=== PATIENT | male | born 1980 | race Caucasian/White ===

== ENCOUNTER 2019-08-21 10:53 | Inpatient (IN) | payer OTHER ==
[~2019-08-21] VITALS: Ht 167.6 cm; Wt 68.9 kg
[2019-08-21 11:00] VITALS: Ht 167.6 cm; Wt 68.9 kg
[2019-08-21 12:07] LABS: PLATELET COUNT 413 x10^3mcL (130-400); RED CELL DISTRIBUTION WIDTH 13.5 % (11.5-14.5)
[2019-08-21 12:23] LABS: BILIRUBIN TOTAL 0.2 mg/dL (0.20-1.00); CALCIUM 8.2 mg/dL (8.5-10.1); CARBON DIOXIDE 25.3 mmol/L (21-32); CREATININE SERUM 1.6 mg/dL (0.7-1.3); POTASSIUM SERUM 4.2 mmol/L (3.5-5.1)
[2019-08-21 12:27] LABS: ALBUMIN 1.1 g/dL (3.4-5.0); TOTAL PROTEIN, SERUM 5.6 g/dL (6.4-8.2)
[2019-08-21 12:33] LABS: FREE T4 0.99 ng/dL (0.76-1.46)
[2019-08-21 12:36] LABS: FREE THYROXINE INDEX 1.4 ug/dL (1.4-4.5)
[2019-08-21 12:38] LABS: T3 TOTAL 0.55 ng/mL
[2019-08-21 12:39] LABS: UA SPECIFIC GRAVITY 1.015 (1.005-1.035); microscopic required? YES; urine erythrocyte 1+ (NEGATIVE)
[2019-08-21 13:07] LABS: BAND NEUTROPHIL 11 % (0-10); SEGMENTED NEUTROPHILS 80 % (37-75)
[2019-08-21 13:08] LABS: MONOCYTE 4 % (0-7); PLATELET MORPHOLOGY LARGE PLATELET SEEN; rbc morphology (normal/abnorm) NORMAL (NORMAL)
[2019-08-21] MEDS ORDERED: NOVI (15:57)
[2019-08-21 17:22] LABS: MAGNESIUM 1.5 mg/dL (1.8-2.4); PHOSPHOROUS 3.8 mg/dL (2.5-4.9)
[2019-08-21 17:29] LABS: CHOLESTEROL/HDL RATIO 7.3
[2019-08-21 17:47] VITALS: BP 106/69
[2019-08-21 19:10] LABS: AMPHETAMINE QUAL UR NONE DETECTED (See below)
[2019-08-21 20:06] VITALS: BP 112/61
[2019-08-22 05:32] VITALS: BP 107/61
[2019-08-22 07:32] LABS: BILIRUBIN TOTAL 0.13 mg/dL (0.20-1.00); CALCIUM 8.5 mg/dL (8.5-10.1); CARBON DIOXIDE 23.7 mmol/L (21-32); CREATININE SERUM 1.5 mg/dL (0.7-1.3); MAGNESIUM 1.8 mg/dL (1.8-2.4); PHOSPHOROUS 4.2 mg/dL (2.5-4.9); POTASSIUM SERUM 4.5 mmol/L (3.5-5.1)
[2019-08-22 07:39] LABS: ALBUMIN 0.9 g/dL (3.4-5.0); TOTAL PROTEIN, SERUM 5.6 g/dL (6.4-8.2)
[2019-08-22 07:51] VITALS: BP 96/59
[2019-08-22 08:49] LABS: PLATELET COUNT 419 x10^3mcL (130-400)
[2019-08-22 12:34] LABS: BAND NEUTROPHIL 28 % (0-10); MONOCYTE 4 % (0-7); PLATELET MORPHOLOGY PLATELETS NORMAL; SEGMENTED NEUTROPHILS 65 % (37-75); rbc morphology (normal/abnorm) NORMAL (NORMAL)
[2019-08-22 12:35] VITALS: BP 102/64
[2019-08-22 17:05] VITALS: BP 104/65
[2019-08-22 19:57] VITALS: BP 123/75
[2019-08-23 05:21] VITALS: BP 101/60
[2019-08-23 07:29] LABS: ALBUMIN 0.9 g/dL (3.4-5.0); BILIRUBIN TOTAL 0.1 mg/dL (0.20-1.00); CALCIUM 8.1 mg/dL (8.5-10.1); CARBON DIOXIDE 24.8 mmol/L (21-32); CREATININE SERUM 1.4 mg/dL (0.7-1.3); MAGNESIUM 1.6 mg/dL (1.8-2.4); POTASSIUM SERUM 3.6 mmol/L (3.5-5.1); TOTAL PROTEIN, SERUM 5.3 g/dL (6.4-8.2)
[2019-08-23 07:55] LABS: BASOPHIL % 0.1 % (0-2); RED CELL DISTRIBUTION WIDTH 13.6 % (11.5-14.5)
[2019-08-23 07:57] LABS: PLATELET COUNT 417 x10^3mcL (130-400)
[2019-08-23 08:36] VITALS: BP 110/66
[2019-08-23 11:45] VITALS: BP 112/67
[2019-08-23 17:53] LABS: CREATININE UR 40.3 mg/dL
[2019-08-23 17:56] LABS: CREATININE SERUM 1.4 mg/dL (0.7-1.3)
[2019-08-23 21:15] VITALS: BP 160/96
[2019-08-24 01:15] VITALS: BP 152/89
[2019-08-24 04:06] LABS: RAPID PLASMA REAGIN Non Reactive (Non Reactive)
[2019-08-24 04:47] VITALS: BP 128/72
[2019-08-24 07:07] LABS: BASOPHIL % 0.3 % (0-2); RED CELL DISTRIBUTION WIDTH 14.4 % (11.5-14.5)
[2019-08-24 07:08] LABS: PLATELET COUNT 445 x10^3mcL (130-400)
[2019-08-24 07:31] LABS: CALCIUM 8.3 mg/dL (8.5-10.1); CARBON DIOXIDE 27.4 mmol/L (21-32); CREATININE SERUM 1.4 mg/dL (0.7-1.3); PHOSPHOROUS 3.8 mg/dL (2.5-4.9); POTASSIUM SERUM 3.5 mmol/L (3.5-5.1)
[2019-08-24 07:48] VITALS: BP 120/66
[2019-08-24 12:29] VITALS: BP 154/89
[2019-08-24 16:50] VITALS: BP 131/76
[2019-08-24 21:06] VITALS: BP 136/79
[2019-08-25 05:48] VITALS: BP 127/80
[2019-08-25 06:31] LABS: CALCIUM 8.4 mg/dL (8.5-10.1); CARBON DIOXIDE 29.4 mmol/L (21-32); CHLORIDE SERUM 101 mmol/L (98-107); CREATININE SERUM 1.3 mg/dL (0.7-1.3); GFR1 > 60 mL/min; GLUCOSE SERUM 162 mg/dL (74-106); POTASSIUM SERUM 3.1 mmol/L (3.5-5.1); SODIUM SERUM 138 mmol/L (136-145)
[2019-08-25 06:36] LABS: BASOPHIL % 0.4 % (0-2)
[2019-08-25 07:40] LABS: RED CELL DISTRIBUTION WIDTH 14.7 % (11.5-14.5)
[2019-08-25 07:41] LABS: PLATELET COUNT 518 x10^3mcL (130-400)
[2019-08-25 08:25] VITALS: BP 107/72
[2019-08-25 12:04] VITALS: BP 147/89
[2019-08-25 15:55] VITALS: BP 118/75
[2019-08-25 19:39] VITALS: BP 118/73
[2019-08-26 05:39] VITALS: BP 116/78
[2019-08-26 06:30] LABS: BASOPHIL % 0.1 % (0-2)
[2019-08-26 06:52] LABS: CALCIUM 8.2 mg/dL (8.5-10.1); CARBON DIOXIDE 32.5 mmol/L (21-32); CREATININE SERUM 1.4 mg/dL (0.7-1.3); POTASSIUM SERUM 3.6 mmol/L (3.5-5.1)
[2019-08-26 07:05] LABS: RED CELL DISTRIBUTION WIDTH 14.6 % (11.5-14.5)
[2019-08-26 07:42] LABS: PLATELET COUNT 569 x10^3mcL (130-400)
[2019-08-26 08:04] VITALS: BP 116/69
[2019-08-26 12:48] VITALS: BP 118/79
[2019-08-26 16:49] VITALS: BP 107/62
[2019-08-26 19:48] VITALS: BP 128/70
[2019-08-27 05:36] VITALS: BP 116/71
[2019-08-27 06:54] LABS: CALCIUM 8.2 mg/dL (8.5-10.1); CHLORIDE SERUM 101 mmol/L (98-107); CREATININE SERUM 1.3 mg/dL (0.7-1.3); GFR1 > 60 mL/min; GLUCOSE SERUM 203 mg/dL (74-106); MAGNESIUM 1.7 mg/dL (1.8-2.4); PHOSPHOROUS 3.8 mg/dL (2.5-4.9); POTASSIUM SERUM 3.5 mmol/L (3.5-5.1); SODIUM SERUM 140 mmol/L (136-145)
[2019-08-27 07:17] LABS: BASOPHIL % 0.4 % (0-2)
[2019-08-27 07:50] LABS: PLATELET COUNT 577 x10^3mcL (130-400); RED CELL DISTRIBUTION WIDTH 14.8 % (11.5-14.5)
[2019-08-27 08:26] VITALS: BP 111/73
[2019-08-27 12:40] VITALS: BP 124/81
[2019-08-27 16:42] VITALS: BP 120/70
[2019-08-27 20:10] VITALS: BP 132/87
[2019-08-28 06:06] VITALS: BP 134/74
[2019-08-28 07:01] LABS: CALCIUM 8.1 mg/dL (8.5-10.1); CARBON DIOXIDE 32.9 mmol/L (21-32); CHLORIDE SERUM 102 mmol/L (98-107); CREATININE SERUM 1.1 mg/dL (0.7-1.3); GFR1 > 60 mL/min; GLUCOSE SERUM 68 mg/dL (74-106); MAGNESIUM 1.7 mg/dL (1.8-2.4); PHOSPHOROUS 3.8 mg/dL (2.5-4.9); POTASSIUM SERUM 3.3 mmol/L (3.5-5.1); SODIUM SERUM 141 mmol/L (136-145)
[2019-08-28 08:27] VITALS: BP 120/73
[2019-08-28 08:33] LABS: BASOPHIL % 0.4 % (0-2); RED CELL DISTRIBUTION WIDTH 14.3 % (11.5-14.5)
[2019-08-28 08:44] LABS: PLATELET COUNT 632 x10^3mcL (130-400)
[2019-08-28 13:04] VITALS: BP 140/86
[2019-08-28 17:11] VITALS: BP 134/88
[2019-08-28 20:43] VITALS: BP 122/77
[2019-08-29 05:29] VITALS: BP 132/84
[2019-08-29 06:54] LABS: CALCIUM 8.5 mg/dL (8.5-10.1); CARBON DIOXIDE 32.3 mmol/L (21-32); CHLORIDE SERUM 103 mmol/L (98-107); CREATININE SERUM 1.1 mg/dL (0.7-1.3); GFR1 > 60 mL/min; GLUCOSE SERUM 72 mg/dL (74-106); MAGNESIUM 1.9 mg/dL (1.8-2.4); PHOSPHOROUS 4.2 mg/dL (2.5-4.9); POTASSIUM SERUM 3.4 mmol/L (3.5-5.1); SODIUM SERUM 140 mmol/L (136-145)
[2019-08-29 07:45] LABS: RED CELL DISTRIBUTION WIDTH 13.4 % (11.5-14.5)
[2019-08-29 08:15] LABS: PLATELET COUNT 724 x10^3mcL (130-400)
[2019-08-29 09:17] VITALS: BP 117/68
[2019-08-29 10:51] LABS: BASOPHIL % 0 % (0-2)
[2019-08-29 16:23] VITALS: BP 137/77
[2019-08-29 20:36] VITALS: BP 146/92
[2019-08-30 05:30] VITALS: BP 146/85
[2019-08-30 07:11] LABS: CALCIUM 8.2 mg/dL (8.5-10.1); CHLORIDE SERUM 103 mmol/L (98-107); CREATININE SERUM 1.3 mg/dL (0.7-1.3); GFR1 > 60 mL/min; GLUCOSE SERUM 96 mg/dL (74-106); MAGNESIUM 1.7 mg/dL (1.8-2.4); PHOSPHOROUS 4.1 mg/dL (2.5-4.9); POTASSIUM SERUM 3.2 mmol/L (3.5-5.1); SODIUM SERUM 142 mmol/L (136-145)
[2019-08-30 08:29] LABS: PLATELET COUNT 801 x10^3mcL (130-400)
[2019-08-30 09:06] VITALS: BP 122/77
[2019-08-30 15:58] VITALS: BP 157/97
[2019-08-30 20:00] VITALS: BP 141/83
[2019-08-31 05:37] VITALS: BP 146/81
[2019-08-31 06:37] LABS: CALCIUM 8.5 mg/dL (8.5-10.1); CARBON DIOXIDE 33.7 mmol/L (21-32); CHLORIDE SERUM 103 mmol/L (98-107); CREATININE SERUM 1.2 mg/dL (0.7-1.3); GFR1 > 60 mL/min; GLUCOSE SERUM 110 mg/dL (74-106); POTASSIUM SERUM 3.4 mmol/L (3.5-5.1); SODIUM SERUM 141 mmol/L (136-145)
[2019-08-31 06:55] LABS: BASOPHIL % 0.6 % (0-2)
[2019-08-31 07:37] LABS: PLATELET COUNT 747 x10^3mcL (130-400)
[2019-08-31 08:30] VITALS: BP 134/80
[2019-08-31 12:09] VITALS: BP 133/91
[2019-08-31 16:51] VITALS: BP 118/75
[2019-09-01 05:31] VITALS: BP 146/86
[2019-09-01 08:15] VITALS: BP 145/90
[2019-09-01 08:36] LABS: BASOPHIL % 0.4 % (0-2); RED CELL DISTRIBUTION WIDTH 13.9 % (11.5-14.5)
[2019-09-01 08:44] LABS: CALCIUM 8.6 mg/dL (8.5-10.1); CARBON DIOXIDE 32.3 mmol/L (21-32); CHLORIDE SERUM 105 mmol/L (98-107); CREATININE SERUM 1.2 mg/dL (0.7-1.3); GFR1 > 60 mL/min; GLUCOSE SERUM 104 mg/dL (74-106); POTASSIUM SERUM 3.9 mmol/L (3.5-5.1); SODIUM SERUM 145 mmol/L (136-145)
[2019-09-01 11:18] LABS: PLATELET COUNT 848 x10^3mcL (130-400)
[2019-09-01 13:34] VITALS: BP 140/86
[2019-09-01 17:27] VITALS: BP 129/86
[2019-09-01 20:54] VITALS: BP 145/86
[2019-09-02 05:43] VITALS: BP 112/66
[2019-09-02 08:25] VITALS: BP 116/70
[2019-09-02 12:53] VITALS: BP 134/88
[2019-09-02 17:21] VITALS: BP 127/78
[2019-09-02 20:35] VITALS: BP 142/87
[2019-09-03 06:15] VITALS: BP 133/85
[2019-09-03 06:49] LABS: CARBON DIOXIDE 32.1 mmol/L (21-32); CREATININE SERUM 1.9 mg/dL (0.7-1.3); POTASSIUM SERUM 3.7 mmol/L (3.5-5.1)
[2019-09-03 07:35] LABS: CALCIUM 8.4 mg/dL (8.5-10.1)
[2019-09-03 07:51] LABS: BASOPHIL % 0.7 % (0-2)
[2019-09-03 08:06] LABS: RED CELL DISTRIBUTION WIDTH 14.7 % (11.5-14.5)
[2019-09-03 08:08] LABS: PLATELET COUNT 879 x10^3mcL (130-400)
[2019-09-03 08:37] VITALS: BP 142/86
[2019-09-03 12:08] VITALS: BP 127/76
[2019-09-03 19:24] VITALS: BP 122/67
[2019-09-04 04:52] VITALS: BP 141/84
[2019-09-04 07:27] LABS: BASOPHIL % 0.7 % (0-2); RED CELL DISTRIBUTION WIDTH 14.3 % (11.5-14.5)
[2019-09-04 07:45] LABS: CALCIUM 8.1 mg/dL (8.5-10.1); CARBON DIOXIDE 31.1 mmol/L (21-32); CREATININE SERUM 1.7 mg/dL (0.7-1.3); POTASSIUM SERUM 3.4 mmol/L (3.5-5.1)
[2019-09-04 08:14] LABS: PLATELET COUNT 794 x10^3mcL (130-400)
[2019-09-04 08:36] VITALS: BP 121/78
[2019-09-04 12:35] VITALS: BP 138/88
[2019-09-04 16:23] VITALS: BP 126/69
[2019-09-04 20:39] VITALS: BP 136/78
[2019-09-05 05:22] VITALS: BP 129/70
[2019-09-05 07:45] VITALS: BP 166/94
[2019-09-05 08:57] LABS: CALCIUM 8.4 mg/dL (8.5-10.1); CARBON DIOXIDE 28.6 mmol/L (21-32); CREATININE SERUM 1.7 mg/dL (0.7-1.3); POTASSIUM SERUM 3.5 mmol/L (3.5-5.1)
[2019-09-05 09:01] LABS: BASOPHIL % 0.9 % (0-2); RED CELL DISTRIBUTION WIDTH 14.4 % (11.5-14.5)
[2019-09-05 09:39] LABS: IRON 44 ug/dL (65-170)
[2019-09-05 09:50] LABS: PLATELET COUNT 828 x10^3mcL (130-400)
[2019-09-05 10:08] LABS: TOTAL IRON BINDING CAPACITY 225 ug/dL (250-450)
[2019-09-05 12:11] VITALS: BP 173/94
[2019-09-05 16:36] VITALS: BP 150/85
[2019-09-05 20:12] VITALS: BP 156/89
[2019-09-05 20:50] VITALS: BP 148/82
[2019-09-06 06:00] VITALS: BP 164/89
[2019-09-06 09:17] VITALS: BP 149/87
[2019-09-06 13:03] VITALS: BP 170/97
[2019-09-06 16:30] VITALS: BP 139/81
[2019-09-06 17:54] VITALS: BP 156/85
[2019-09-06 21:05] VITALS: BP 135/74
[2019-09-07 05:34] VITALS: BP 146/77
[2019-09-07 07:22] LABS: CALCIUM 8.4 mg/dL (8.5-10.1); CARBON DIOXIDE 27.5 mmol/L (21-32); CREATININE SERUM 1.4 mg/dL (0.7-1.3); MAGNESIUM 2.3 mg/dL (1.8-2.4); PHOSPHOROUS 3.5 mg/dL (2.5-4.9); POTASSIUM SERUM 3.5 mmol/L (3.5-5.1)
[2019-09-07 08:26] LABS: BASOPHIL % 0.5 % (0-2); RED CELL DISTRIBUTION WIDTH 14.7 % (11.5-14.5)
[2019-09-07 08:27] LABS: PLATELET COUNT 651 x10^3mcL (130-400)
[2019-09-07 09:00] VITALS: BP 130/79
[2019-09-07 17:13] VITALS: BP 155/84
[2019-09-08 06:00] VITALS: BP 152/80
[2019-09-08 06:25] LABS: CALCIUM 8.4 mg/dL (8.5-10.1); CARBON DIOXIDE 30.8 mmol/L (21-32); CHLORIDE SERUM 109 mmol/L (98-107); CREATININE SERUM 1.3 mg/dL (0.7-1.3); GFR1 > 60 mL/min; GLUCOSE SERUM 135 mg/dL (74-106); PHOSPHOROUS 3.9 mg/dL (2.5-4.9); POTASSIUM SERUM 3.3 mmol/L (3.5-5.1); SODIUM SERUM 143 mmol/L (136-145)
[2019-09-08 06:36] LABS: BASOPHIL % 0.5 % (0-2)
[2019-09-08 06:54] LABS: MAGNESIUM 2.2 mg/dL (1.8-2.4)
[2019-09-08 08:17] LABS: RED CELL DISTRIBUTION WIDTH 14.7 % (11.5-14.5)
[2019-09-08 08:39] VITALS: BP 162/95
[2019-09-08 08:39] LABS: PLATELET COUNT 564 x10^3mcL (130-400)
[2019-09-08 12:48] VITALS: BP 162/95
[2019-09-08 20:44] VITALS: BP 164/90
[2019-09-08 22:50] VITALS: BP 154/81
[2019-09-09 05:09] VITALS: BP 169/92
[2019-09-09 06:54] VITALS: BP 167/90
[2019-09-09 07:01] LABS: CALCIUM 8.3 mg/dL (8.5-10.1); CARBON DIOXIDE 29.6 mmol/L (21-32); CHLORIDE SERUM 108 mmol/L (98-107); CREATININE SERUM 1.3 mg/dL (0.7-1.3); GFR1 > 60 mL/min; GLUCOSE SERUM 157 mg/dL (74-106); PHOSPHOROUS 4.1 mg/dL (2.5-4.9); POTASSIUM SERUM 3.4 mmol/L (3.5-5.1); SODIUM SERUM 143 mmol/L (136-145)
[2019-09-09 07:14] LABS: BASOPHIL % 0.4 % (0-2)
[2019-09-09 07:38] LABS: PLATELET COUNT 522 x10^3mcL (130-400); RED CELL DISTRIBUTION WIDTH 15.1 % (11.5-14.5)
[2019-09-09 08:52] VITALS: BP 152/95
[2019-09-09 12:00] VITALS: BP 157/91
[2019-09-09 17:09] VITALS: BP 158/93
[2019-09-09 20:20] VITALS: BP 155/85
[2019-09-10 04:19] VITALS: BP 159/90
[2019-09-10 07:11] LABS: CALCIUM 8.2 mg/dL (8.5-10.1); CARBON DIOXIDE 28.3 mmol/L (21-32); CREATININE SERUM 1.4 mg/dL (0.7-1.3); MAGNESIUM 1.9 mg/dL (1.8-2.4); PHOSPHOROUS 4.5 mg/dL (2.5-4.9); POTASSIUM SERUM 3.1 mmol/L (3.5-5.1)
[2019-09-10 07:27] LABS: BASOPHIL % 0.7 % (0-2)
[2019-09-10 07:33] VITALS: BP 162/92
[2019-09-10 07:41] LABS: PLATELET COUNT 460 x10^3mcL (130-400); RED CELL DISTRIBUTION WIDTH 15.5 % (11.5-14.5)
[2019-09-10 11:37] VITALS: BP 163/93
[2019-09-10 15:38] VITALS: BP 138/88
[2019-09-10 20:16] VITALS: BP 168/99
[2019-09-11 05:35] VITALS: BP 166/98
[2019-09-11 06:33] LABS: BASOPHIL % 0.6 % (0-2)
[2019-09-11 06:51] LABS: PLATELET COUNT 432 x10^3mcL (130-400); RED CELL DISTRIBUTION WIDTH 15.9 % (11.5-14.5)
[2019-09-11 07:30] LABS: CALCIUM 8.5 mg/dL (8.5-10.1); CARBON DIOXIDE 30.6 mmol/L (21-32); CREATININE SERUM 1.6 mg/dL (0.7-1.3); MAGNESIUM 1.9 mg/dL (1.8-2.4); PHOSPHOROUS 4.7 mg/dL (2.5-4.9); POTASSIUM SERUM 3.9 mmol/L (3.5-5.1)
[2019-09-11 08:12] VITALS: BP 167/102
[2019-09-11 12:12] VITALS: BP 142/83
[2019-09-11 16:30] VITALS: BP 134/87
[2019-09-11 20:49] VITALS: BP 145/85
[2019-09-12 06:03] VITALS: BP 156/94
[2019-09-12 06:40] LABS: BASOPHIL % 0.6 % (0-2); PLATELET COUNT 398 x10^3mcL (130-400)
[2019-09-12 06:56] LABS: CALCIUM 8.3 mg/dL (8.5-10.1); CARBON DIOXIDE 29.3 mmol/L (21-32); CREATININE SERUM 1.5 mg/dL (0.7-1.3); MAGNESIUM 1.9 mg/dL (1.8-2.4); PHOSPHOROUS 4.1 mg/dL (2.5-4.9); POTASSIUM SERUM 3.9 mmol/L (3.5-5.1)
[2019-09-12 07:01] LABS: RED CELL DISTRIBUTION WIDTH 16.1 % (11.5-14.5)
[2019-09-12 07:33] VITALS: BP 148/93
[2019-09-12 11:14] VITALS: BP 161/97
[2019-09-12 16:03] VITALS: BP 157/91
[2019-09-12 20:45] VITALS: BP 118/73
[2019-09-13 05:30] VITALS: BP 166/95
[2019-09-13 06:22] LABS: BASOPHIL % 0.6 % (0-2); PLATELET COUNT 342 x10^3mcL (130-400)
[2019-09-13 06:32] LABS: RED CELL DISTRIBUTION WIDTH 15.9 % (11.5-14.5)
[2019-09-13 06:48] LABS: CALCIUM 8.4 mg/dL (8.5-10.1); CARBON DIOXIDE 29.2 mmol/L (21-32); CREATININE SERUM 1.5 mg/dL (0.7-1.3); MAGNESIUM 1.9 mg/dL (1.8-2.4); PHOSPHOROUS 4.2 mg/dL (2.5-4.9)
[2019-09-13 09:05] VITALS: BP 156/89
[2019-09-13 17:02] VITALS: BP 157/92
[2019-09-13 20:25] VITALS: BP 131/83
[2019-09-14 05:53] VITALS: BP 145/86
[2019-09-14 06:34] LABS: BASOPHIL % 0.6 % (0-2); PLATELET COUNT 333 x10^3mcL (130-400)
[2019-09-14 06:54] LABS: CARBON DIOXIDE 29.6 mmol/L (21-32); CREATININE SERUM 1.6 mg/dL (0.7-1.3); MAGNESIUM 1.9 mg/dL (1.8-2.4); PHOSPHOROUS 4.3 mg/dL (2.5-4.9); POTASSIUM SERUM 4.1 mmol/L (3.5-5.1); RED CELL DISTRIBUTION WIDTH 16.8 % (11.5-14.5)
[2019-09-14 08:43] VITALS: BP 169/62
[2019-09-14 12:14] VITALS: BP 170/100
[2019-09-14 14:18] VITALS: BP 136/79
[2019-09-14 16:15] VITALS: BP 142/78
[2019-09-14 20:07] VITALS: BP 145/92
[2019-09-15 05:28] VITALS: BP 157/90
[2019-09-15 06:41] LABS: CALCIUM 8.7 mg/dL (8.5-10.1); CARBON DIOXIDE 28.6 mmol/L (21-32); CREATININE SERUM 1.6 mg/dL (0.7-1.3); POTASSIUM SERUM 3.8 mmol/L (3.5-5.1)
[2019-09-15 09:11] VITALS: BP 161/91
[2019-09-15 14:04] VITALS: BP 155/92
[2019-09-15 17:25] VITALS: BP 160/82
[2019-09-15 21:33] VITALS: BP 146/84
[2019-09-16 05:50] VITALS: BP 172/96
[2019-09-16 06:56] VITALS: BP 168/95
[2019-09-16 06:56] LABS: BASOPHIL % 0.4 % (0-2); CALCIUM 8.2 mg/dL (8.5-10.1); CARBON DIOXIDE 30.1 mmol/L (21-32); CREATININE SERUM 1.5 mg/dL (0.7-1.3); PLATELET COUNT 308 x10^3mcL (130-400); POTASSIUM SERUM 3.9 mmol/L (3.5-5.1)
[2019-09-16 07:01] LABS: RED CELL DISTRIBUTION WIDTH 16.9 % (11.5-14.5)
[2019-09-16 09:04] VITALS: BP 155/84
[2019-09-16 13:09] VITALS: BP 170/98
[2019-09-16 18:01] VITALS: BP 137/84
[2019-09-16 20:42] VITALS: BP 146/84
[2019-09-17] VITALS (8 sets, daily range): BP systolic 136–177; BP diastolic 84–102
[2019-09-17 07:14] LABS: CARBON DIOXIDE 28.1 mmol/L (21-32); CREATININE SERUM 1.5 mg/dL (0.7-1.3); POTASSIUM SERUM 3.8 mmol/L (3.5-5.1)
[2019-09-17 20:09] LABS: BASOPHIL % 0.3 % (0-2); PLATELET COUNT 293 x10^3mcL (130-400)
[2019-09-17 20:12] LABS: RED CELL DISTRIBUTION WIDTH 17.5 % (11.5-14.5)
[2019-09-18 05:11] VITALS: BP 161/92
[2019-09-18 06:31] LABS: BASOPHIL % 0.4 % (0-2); PLATELET COUNT 303 x10^3mcL (130-400)
[2019-09-18 07:04] LABS: CALCIUM 8.5 mg/dL (8.5-10.1); CARBON DIOXIDE 29.8 mmol/L (21-32); CREATININE SERUM 1.6 mg/dL (0.7-1.3); POTASSIUM SERUM 3.9 mmol/L (3.5-5.1)
[2019-09-18 07:18] LABS: RED CELL DISTRIBUTION WIDTH 17.2 % (11.5-14.5)
[2019-09-18 08:11] VITALS: BP 164/95
[2019-09-18 12:05] VITALS: BP 149/91
[2019-09-18 16:19] VITALS: BP 131/92
[2019-09-18 19:10] VITALS: BP 141/85
[2019-09-19 06:03] VITALS: BP 149/81
[2019-09-19 06:37] LABS: BASOPHIL % 0.6 % (0-2); PLATELET COUNT 273 x10^3mcL (130-400)
[2019-09-19 06:50] LABS: CALCIUM 8.2 mg/dL (8.5-10.1); CARBON DIOXIDE 29.4 mmol/L (21-32); CREATININE SERUM 1.6 mg/dL (0.7-1.3); PHOSPHOROUS 4.7 mg/dL (2.5-4.9); POTASSIUM SERUM 4.2 mmol/L (3.5-5.1)
[2019-09-19 12:29] VITALS: BP 161/92
[2019-09-19 16:13] VITALS: BP 144/94
[2019-09-19 19:25] VITALS: BP 144/88
[2019-09-20] VITALS (8 sets, daily range): BP systolic 136–168; BP diastolic 84–99
[2019-09-20 13:23] LABS: BASOPHIL % 0.4 % (0-2); PLATELET COUNT 286 x10^3mcL (130-400)
[2019-09-20 13:25] LABS: RED CELL DISTRIBUTION WIDTH 17.9 % (11.5-14.5)
[2019-09-20 13:35] LABS: CREATININE SERUM 1.5 mg/dL (0.7-1.3); MAGNESIUM 1.9 mg/dL (1.8-2.4); PHOSPHOROUS 4.4 mg/dL (2.5-4.9); POTASSIUM SERUM 4.3 mmol/L (3.5-5.1)
[2019-09-21 05:42] VITALS: BP 146/91
[2019-09-21 06:24] LABS: BASOPHIL % 0.4 % (0-2); PLATELET COUNT 269 x10^3mcL (130-400)
[2019-09-21 06:31] LABS: CARBON DIOXIDE 26.3 mmol/L (21-32); CREATININE SERUM 1.6 mg/dL (0.7-1.3); MAGNESIUM 1.9 mg/dL (1.8-2.4); PHOSPHOROUS 4.6 mg/dL (2.5-4.9); POTASSIUM SERUM 3.9 mmol/L (3.5-5.1)
[2019-09-21 06:43] LABS: RED CELL DISTRIBUTION WIDTH 17.8 % (11.5-14.5)
[2019-09-21 08:23] VITALS: BP 147/93
[2019-09-21 12:46] VITALS: BP 152/94
[2019-09-21 17:25] VITALS: BP 141/87
[2019-09-21 20:30] VITALS: BP 117/72
[2019-09-22 05:00] VITALS: BP 127/77
[2019-09-22 06:47] LABS: BASOPHIL % 0.4 % (0-2); PLATELET COUNT 257 x10^3mcL (130-400)
[2019-09-22 06:55] LABS: RED CELL DISTRIBUTION WIDTH 18.4 % (11.5-14.5)
[2019-09-22 07:06] LABS: CARBON DIOXIDE 28.7 mmol/L (21-32); CREATININE SERUM 1.5 mg/dL (0.7-1.3); PHOSPHOROUS 4.7 mg/dL (2.5-4.9)
[2019-09-22 07:42] VITALS: BP 120/69
[2019-09-22 11:50] VITALS: BP 114/77
[2019-09-22 16:54] VITALS: BP 120/73
[2019-09-22 20:31] VITALS: BP 127/81
[2019-09-23 05:17] VITALS: BP 142/88
[2019-09-23 06:28] LABS: BASOPHIL % 0.3 % (0-2); PLATELET COUNT 249 x10^3mcL (130-400)
[2019-09-23 06:34] LABS: CALCIUM 8.3 mg/dL (8.5-10.1); CREATININE SERUM 1.4 mg/dL (0.7-1.3); MAGNESIUM 2.1 mg/dL (1.8-2.4); PHOSPHOROUS 4.6 mg/dL (2.5-4.9); POTASSIUM SERUM 3.7 mmol/L (3.5-5.1)
[2019-09-23 06:39] LABS: RED CELL DISTRIBUTION WIDTH 18.3 % (11.5-14.5)
[2019-09-23 07:51] VITALS: BP 131/81
[2019-09-23 12:03] VITALS: BP 158/98
[2019-09-23 16:55] VITALS: BP 154/84
[2019-09-23 23:20] VITALS: BP 144/84
[2019-09-24] VITALS (8 sets, daily range): BP systolic 130–173; BP diastolic 59–93
[2019-09-24 09:50] LABS: BASOPHIL % 0.2 % (0-2); PLATELET COUNT 300 x10^3mcL (130-400)
[2019-09-24 09:52] LABS: CALCIUM 8.7 mg/dL (8.5-10.1); CARBON DIOXIDE 31.5 mmol/L (21-32); CREATININE SERUM 1.5 mg/dL (0.7-1.3); POTASSIUM SERUM 4.1 mmol/L (3.5-5.1)
[2019-09-24 10:10] LABS: RED CELL DISTRIBUTION WIDTH 18.4 % (11.5-14.5)
[2019-09-25 05:05] VITALS: BP 151/90
[2019-09-25 05:55] VITALS: BP 178/78
[2019-09-25 08:23] VITALS: BP 133/95
[2019-09-25 12:05] LABS: CALCIUM 8.8 mg/dL (8.5-10.1); CARBON DIOXIDE 26.5 mmol/L (21-32); CREATININE SERUM 1.5 mg/dL (0.7-1.3); POTASSIUM SERUM 4.1 mmol/L (3.5-5.1)
[2019-09-25 17:37] VITALS: BP 136/89
[2019-09-25 20:50] VITALS: BP 102/69
[2019-09-25 21:25] VITALS: BP 144/87
[2019-09-26 05:28] VITALS: BP 147/91
[2019-09-26 07:07] LABS: BASOPHIL % 0.3 % (0-2); PLATELET COUNT 305 x10^3mcL (130-400)
[2019-09-26 07:25] LABS: CALCIUM 8.5 mg/dL (8.5-10.1); CARBON DIOXIDE 28.4 mmol/L (21-32); CREATININE SERUM 1.4 mg/dL (0.7-1.3); MAGNESIUM 1.9 mg/dL (1.8-2.4); PHOSPHOROUS 5.1 mg/dL (2.5-4.9); POTASSIUM SERUM 3.8 mmol/L (3.5-5.1)
[2019-09-26 07:54] LABS: RED CELL DISTRIBUTION WIDTH 18.3 % (11.5-14.5)
[2019-09-26 08:17] VITALS: BP 170/102
[2019-09-26 09:00] VITALS: BP 147/101
[2019-09-26 12:07] VITALS: BP 167/94
[2019-09-26 17:02] VITALS: BP 152/84
[2019-09-26 20:45] VITALS: BP 137/84
[2019-09-27 05:22] VITALS: BP 164/91
[2019-09-27 07:10] LABS: CALCIUM 8.9 mg/dL (8.5-10.1); CARBON DIOXIDE 29.8 mmol/L (21-32); CREATININE SERUM 1.5 mg/dL (0.7-1.3); MAGNESIUM 1.8 mg/dL (1.8-2.4); PHOSPHOROUS 5.1 mg/dL (2.5-4.9); POTASSIUM SERUM 3.9 mmol/L (3.5-5.1)
[2019-09-27 07:35] LABS: BASOPHIL % 0.5 % (0-2); PLATELET COUNT 357 x10^3mcL (130-400)
[2019-09-27 08:45] VITALS: BP 140/87
[2019-09-27 12:04] VITALS: BP 129/87
[2019-09-27 17:32] VITALS: BP 106/69
[2019-09-27 21:10] VITALS: BP 130/79
[2019-09-28 06:02] VITALS: BP 145/88
[2019-09-28 06:34] LABS: BASOPHIL % 0.2 % (0-2); PLATELET COUNT 349 x10^3mcL (130-400)
[2019-09-28 06:46] LABS: RED CELL DISTRIBUTION WIDTH 18.1 % (11.5-14.5)
[2019-09-28 06:49] LABS: CALCIUM 8.7 mg/dL (8.5-10.1); CREATININE SERUM 1.8 mg/dL (0.7-1.3); MAGNESIUM 1.9 mg/dL (1.8-2.4); PHOSPHOROUS 4.3 mg/dL (2.5-4.9); POTASSIUM SERUM 4.1 mmol/L (3.5-5.1)
[2019-09-28 08:23] VITALS: BP 138/91
[2019-09-28 12:00] VITALS: BP 137/85
[2019-09-28 16:55] VITALS: BP 126/87
[2019-09-28 20:34] VITALS: BP 115/75
[2019-09-29 06:22] VITALS: BP 151/88
[2019-09-29 07:03] LABS: BASOPHIL % 0.3 % (0-2); PLATELET COUNT 359 x10^3mcL (130-400)
[2019-09-29 07:32] LABS: CALCIUM 8.6 mg/dL (8.5-10.1); CREATININE SERUM 1.8 mg/dL (0.7-1.3); PHOSPHOROUS 4.4 mg/dL (2.5-4.9)
[2019-09-29 08:34] VITALS: BP 136/81
[2019-09-29 16:28] VITALS: BP 107/71
[2019-09-29 20:32] VITALS: BP 126/75
[2019-09-30 05:40] VITALS: BP 148/82
[2019-09-30 06:56] LABS: BASOPHIL % 0.3 % (0-2); PLATELET COUNT 331 x10^3mcL (130-400)
[2019-09-30 06:57] LABS: RED CELL DISTRIBUTION WIDTH 17.8 % (11.5-14.5)
[2019-09-30 07:20] LABS: CALCIUM 8.4 mg/dL (8.5-10.1); CARBON DIOXIDE 25.6 mmol/L (21-32); CREATININE SERUM 1.8 mg/dL (0.7-1.3); MAGNESIUM 1.9 mg/dL (1.8-2.4); POTASSIUM SERUM 4.3 mmol/L (3.5-5.1)
[2019-09-30 09:07] VITALS: BP 138/81
[2019-09-30 17:47] VITALS: BP 121/78
[2019-09-30 21:00] VITALS: BP 131/82
[2019-10-01 05:56] VITALS: BP 160/94
[2019-10-01 06:16] VITALS: BP 150/89
[2019-10-01 06:31] LABS: BASOPHIL % 0.4 % (0-2); PLATELET COUNT 323 x10^3mcL (130-400)
[2019-10-01 06:37] LABS: RED CELL DISTRIBUTION WIDTH 17.8 % (11.5-14.5)
[2019-10-01 07:16] LABS: CALCIUM 8.5 mg/dL (8.5-10.1); CARBON DIOXIDE 24.9 mmol/L (21-32); CREATININE SERUM 1.8 mg/dL (0.7-1.3); PHOSPHOROUS 4.1 mg/dL (2.5-4.9); POTASSIUM SERUM 4.3 mmol/L (3.5-5.1)
[2019-10-01 08:59] VITALS: BP 131/76
[2019-10-01 10:49] VITALS: BP 131/76
[2019-10-01] MEDS ORDERED: APR25 PO (11:30)
[2019-10-01] MEDS ORDERED: TRA100 PO (11:30)
[2019-10-01] MEDS ORDERED: COZ50 PO (11:31)
[2019-10-01] MEDS ORDERED: NEU100 PO (11:31)
[2019-10-01] MEDS ORDERED: LANTI SQ (11:32)
[2019-10-01] MEDS ORDERED: HUMULIN R100 U/1 M1 SC (11:33)
[2019-10-01 12:39] VITALS: BP 112/72
== END 2019-10-01 13:39 | disposition home or self-care (01) | DRG 871 ==
LOC: ED 10:53 → DU 14:49 → MU 14:49 → EDBEDREQ 14:50 → DU 16:17 → MU 08-25 16:07
PROVIDERS: Emergency Medicine; Family Medicine; Internal Medicine; Student in an Organized Health Care Education/Training Program; ADMIT Internal Medicine; ATTEND Internal Medicine
PROC: 30233N1 Transfusion of Nonautologous Red Blood Cells into Peripheral Vein, Percutaneous Approach (ICD-10-PCS; principal; 2019-08-23)
PROC: 05H833Z Insertion of Infusion Device into Left Axillary Vein, Percutaneous Approach (ICD-10-PCS; 2019-09-04)
DX: A41.01 Sepsis due to Methicillin susceptible Staphylococcus aureus (principal); E43 Unspecified severe protein-calorie malnutrition; K92.2 Gastrointestinal hemorrhage, unspecified; N39.0 Urinary tract infection, site not specified; E87.1 Hypo-osmolality and hyponatremia; N17.9 Acute kidney failure, unspecified; E87.70 Fluid overload, unspecified; E83.42 Hypomagnesemia; D64.9 Anemia, unspecified; E11.65 Type 2 diabetes mellitus with hyperglycemia; Z79.4 Long term (current) use of insulin; D47.3 Essential (hemorrhagic) thrombocythemia; E02 Subclinical iodine-deficiency hypothyroidism; Z89.429 Acquired absence of other toe(s), unspecified side; Z83.3 Family history of diabetes mellitus; E11.21 Type 2 diabetes mellitus with diabetic nephropathy; E11.22 Type 2 diabetes mellitus with diabetic chronic kidney disease; N18.3 Chronic kidney disease, stage 3 (moderate); R91.1 Solitary pulmonary nodule; I12.9 Hypertensive chronic kidney disease with stage 1 through stage 4 chronic kidney disease, or unspecified chronic kidney disease
CPT/HCPCS: 32405; 32557; 82962; 84439; 90658; C1729; G0378; J0360; J0696; J0885-EC; J1815; J1940; J2001; J2270; J3370; J3475; J3490; J7030; J7040; J7050; P9016; Q0092; Q0163; Q9967

== ENCOUNTER 2019-10-07 21:02 | Emergency (ER) | payer MEDICAID ==
[~2019-10-07] VITALS: Ht 167.6 cm; Wt 73.7 kg
[~2019-10-07 21:02] MED LIST: APR25 PO; COZ50 PO; HUMULIN R100 U/1 M1 SC; LANTI SQ; NEU100 PO; NOVI; TRA100 PO
[2019-10-07 21:19] VITALS: Ht 167.6 cm; Wt 73.7 kg
[2019-10-07 22:40] VITALS: BP 152/91
== END 2019-10-07 22:40 | disposition left against medical advice (07) ==
LOC: ED 21:02
DX: Z53.21 Procedure and treatment not carried out due to patient leaving prior to being seen by health care provider (principal)

== ENCOUNTER 2019-11-01 05:36 | Emergency (ER) | payer MEDICAID ==
[~2019-11-01] VITALS: Ht 167.6 cm; Wt 68.0 kg
[~2019-11-01 05:36] MED LIST changes: +BUM1 PO; +ECO81 PO; +METOLAZONE2.5 M1 PO; +PEP20 PO
[2019-11-01 05:38] VITALS: Ht 167.6 cm; Wt 68.0 kg
[2019-11-01 07:00] VITALS: BP 118/74
== END 2019-11-01 07:00 | disposition home or self-care (01) ==
LOC: ED 05:36
DX: E11.40 Type 2 diabetes mellitus with diabetic neuropathy, unspecified (principal); I10 Essential (primary) hypertension
CPT/HCPCS: 82962

== ENCOUNTER 2019-11-24 14:20 | Emergency (ER) | payer MEDICAID ==
[~2019-11-24] VITALS: Ht 167.6 cm; Wt 64.0 kg
[2019-11-24 14:29] VITALS: Ht 167.6 cm; Wt 64.0 kg
[2019-11-24 15:00] LABS: BASOPHIL % 0.3 % (0-2); PLATELET COUNT 258 x10^3mcL (130-400); RED CELL DISTRIBUTION WIDTH 13.5 % (11.5-14.5)
[2019-11-24 15:21] LABS: CALCIUM 8.1 mg/dL (8.5-10.1); CARBON DIOXIDE 24.6 mmol/L (21-32); CREATININE SERUM 2.2 mg/dL (0.7-1.3); POTASSIUM SERUM 4.3 mmol/L (3.5-5.1)
[2019-11-24 15:25] LABS: BILIRUBIN TOTAL 0.2 mg/dL (0.20-1.00)
[2019-11-24 15:31] LABS: ALBUMIN 2.4 g/dL (3.4-5.0); TOTAL PROTEIN, SERUM 5.9 g/dL (6.4-8.2)
[2019-11-24 17:21] VITALS: BP 111/62
== END 2019-11-24 17:21 | disposition home or self-care (01) ==
LOC: ED 14:20
PROVIDERS: Student in an Organized Health Care Education/Training Program
DX: E11.22 Type 2 diabetes mellitus with diabetic chronic kidney disease (principal); I12.9 Hypertensive chronic kidney disease with stage 1 through stage 4 chronic kidney disease, or unspecified chronic kidney disease; N18.9 Chronic kidney disease, unspecified; E11.65 Type 2 diabetes mellitus with hyperglycemia
CPT/HCPCS: 82962; J7030; J7040

== ENCOUNTER 2020-06-07 18:04 | Inpatient (IN) | payer OTHER ==
[~2020-06-07] VITALS: Ht 165.1 cm; Wt 75.3 kg
[2020-06-07 18:17] VITALS: Ht 165.1 cm; Wt 75.3 kg
[2020-06-07 19:15] LABS: BASOPHIL % 1.3 % (0.2-1.5); PLATELET COUNT 221 x10^3mcL (152-348)
[2020-06-07 19:17] LABS: RED CELL DISTRIBUTION WIDTH 16.3 % (12.1-16.2)
[2020-06-07 19:24] LABS: BILIRUBIN TOTAL 0.17 mg/dL (0.20-1.00); CARBON DIOXIDE 27.7 mmol/L (21-32); POTASSIUM SERUM 4.2 mmol/L (3.5-5.1)
[2020-06-07 19:28] LABS: ALBUMIN 1.8 g/dL (3.4-5.0); CREATININE SERUM 5.6 mg/dL (0.7-1.3); TOTAL PROTEIN, SERUM 5.2 g/dL (6.4-8.2)
[2020-06-07] MEDS ORDERED: HUMALOG100 UNIT/1 SQ (20:33)
[2020-06-07] MEDS ORDERED: LANTI SQ (20:33)
[2020-06-07 20:53] LABS: UA SPECIFIC GRAVITY 1.025 (1.005-1.035); microscopic required? YES; urine erythrocyte 2+ (NEGATIVE)
[2020-06-07 21:20] LABS: CHOLESTEROL/HDL RATIO 4.1
[2020-06-07 21:45] LABS: FREE THYROXINE INDEX 2.4 ug/dL (1.4-4.5); T3 TOTAL 0.78 ng/mL; T4(THYROXINE) 6.8 ug/dL (4.7-13.3)
[2020-06-07 21:46] VITALS: BP 182/102
[2020-06-07] MEDS ORDERED: ZESTRIL40 MG PO (22:48)
[2020-06-08] VITALS (7 sets, daily range): BP systolic 125–162; BP diastolic 70–93
[2020-06-08 06:45] LABS: BASOPHIL % 1.3 % (0.2-1.5); PLATELET COUNT 196 x10^3mcL (152-348)
[2020-06-08 07:12] LABS: CALCIUM 7.9 mg/dL (8.5-10.1); CARBON DIOXIDE 20.2 mmol/L (21-32); MAGNESIUM 3.1 mg/dL (1.8-2.4); PHOSPHOROUS 6.1 mg/dL (2.5-4.9)
[2020-06-08 07:22] LABS: CREATININE SERUM 5.6 mg/dL (0.7-1.3)
[2020-06-08 07:26] LABS: RED CELL DISTRIBUTION WIDTH 16.2 % (12.1-16.2)
[2020-06-09 05:42] VITALS: BP 141/83
[2020-06-09 06:33] LABS: PLATELET COUNT 204 x10^3mcL (152-348)
[2020-06-09 06:42] LABS: CALCIUM 7.8 mg/dL (8.5-10.1); CARBON DIOXIDE 15.8 mmol/L (21-32); MAGNESIUM 3.2 mg/dL (1.8-2.4); PHOSPHOROUS 6.6 mg/dL (2.5-4.9)
[2020-06-09 07:06] LABS: CREATININE SERUM 5.6 mg/dL (0.7-1.3)
[2020-06-09 07:27] LABS: RED CELL DISTRIBUTION WIDTH 16.6 % (12.1-16.2)
[2020-06-09 08:11] VITALS: BP 133/69
[2020-06-09 12:00] VITALS: BP 147/89
[2020-06-09 17:03] VITALS: BP 156/91
[2020-06-09 21:00] VITALS: BP 133/69
[2020-06-10 05:36] VITALS: BP 133/77
[2020-06-10 06:11] LABS: BASOPHIL % 1.3 % (0.2-1.5); PLATELET COUNT 185 x10^3mcL (152-348)
[2020-06-10 06:36] LABS: CALCIUM 7.8 mg/dL (8.5-10.1); CARBON DIOXIDE 13.6 mmol/L (21-32); MAGNESIUM 3.2 mg/dL (1.8-2.4)
[2020-06-10 06:40] LABS: CREATININE SERUM 5.7 mg/dL (0.7-1.3)
[2020-06-10 07:19] LABS: RED CELL DISTRIBUTION WIDTH 16.2 % (12.1-16.2)
[2020-06-10 07:52] VITALS: BP 132/73
[2020-06-10 12:06] VITALS: BP 118/66
[2020-06-10 16:11] VITALS: BP 141/68
[2020-06-10 20:17] VITALS: BP 160/81
[2020-06-11 05:48] VITALS: BP 132/77
[2020-06-11 07:54] VITALS: BP 138/81
[2020-06-11 12:20] VITALS: BP 121/74
[2020-06-12 03:41] LABS: CALCIUM 7.9 mg/dL (8.5-10.1)
[2020-06-12 05:48] VITALS: BP 143/90
[2020-06-12 06:58] LABS: BASOPHIL % 1.2 % (0.2-1.5); PLATELET COUNT 197 x10^3mcL (152-348)
[2020-06-12 07:04] LABS: RED CELL DISTRIBUTION WIDTH 16.7 % (12.1-16.2)
[2020-06-12 07:47] LABS: CARBON DIOXIDE 20.8 mmol/L (21-32); MAGNESIUM 3.2 mg/dL (1.8-2.4); PHOSPHOROUS 6.4 mg/dL (2.5-4.9); POTASSIUM SERUM 4.2 mmol/L (3.5-5.1)
[2020-06-12 07:55] LABS: CREATININE SERUM 6.2 mg/dL (0.7-1.3)
[2020-06-12 08:28] VITALS: BP 151/87
[2020-06-12 13:03] VITALS: BP 127/74
[2020-06-12 14:01] LABS: BASOPHIL % 1.9 % (0-2); PLATELET COUNT 183 x10^3mcL (130-400); RED CELL DISTRIBUTION WIDTH 17.1 % (11.5-14.5)
[2020-06-12 17:18] VITALS: BP 155/86
[2020-06-12 20:05] VITALS: BP 163/83
[2020-06-12 22:15] VITALS: BP 154/89
[2020-06-13 04:05] VITALS: BP 156/86
[2020-06-13 08:33] VITALS: BP 160/91
[2020-06-13 12:16] VITALS: BP 142/84
[2020-06-13 16:17] VITALS: BP 150/81
[2020-06-13 21:45] VITALS: BP 122/75
[2020-06-13 22:55] LABS: CALCIUM 8.2 mg/dL (8.5-10.1); CARBON DIOXIDE 21.2 mmol/L (21-32); POTASSIUM SERUM 4.5 mmol/L (3.5-5.1)
[2020-06-13 22:59] LABS: CREATININE SERUM 6.6 mg/dL (0.7-1.3)
[2020-06-14 05:52] VITALS: BP 134/76
[2020-06-14 08:05] VITALS: BP 129/70
[2020-06-14 11:57] VITALS: BP 159/89
[2020-06-14 16:41] VITALS: BP 127/80
[2020-06-14 19:57] VITALS: BP 104/64
[2020-06-15 05:05] VITALS: BP 152/85
[2020-06-15 06:39] LABS: BASOPHIL % 1.2 % (0.2-1.5); PLATELET COUNT 199 x10^3mcL (152-348)
[2020-06-15 06:45] LABS: CARBON DIOXIDE 24.4 mmol/L (21-32); POTASSIUM SERUM 3.8 mmol/L (3.5-5.1)
[2020-06-15 06:49] LABS: CREATININE SERUM 5.7 mg/dL (0.7-1.3)
[2020-06-15 06:59] LABS: RED CELL DISTRIBUTION WIDTH 16.4 % (12.1-16.2)
[2020-06-15 07:42] VITALS: BP 132/75
[2020-06-15] MEDS ORDERED: ATORVASTATIN CA40 M1 PO (09:17)
[2020-06-15] MEDS ORDERED: REN800 PO (09:18)
[2020-06-15] MEDS ORDERED: PEP20 PO (09:18)
[2020-06-15] MEDS ORDERED: TRA100 PO (09:18)
[2020-06-15 12:00] VITALS: BP 146/96
[2020-06-15 12:22] VITALS: BP 102/66
[2020-06-15 13:50] VITALS: BP 102/66
[2020-06-15] MEDS ORDERED: FUROSEMIDE40 MG PO (13:50)
== END 2020-06-15 15:38 | disposition home or self-care (01) | DRG 194 ==
LOC: ED 18:04 → MU 20:25 → DU 20:25 → MU 06-12 15:42
PROVIDERS: Emergency Medicine; Internal Medicine; Surgery; ADMIT Family Medicine; ATTEND Family Medicine
PROC: 0JH63XZ Insertion of Tunneled Vascular Access Device into Chest Subcutaneous Tissue and Fascia, Percutaneous Approach (ICD-10-PCS; principal; 2020-06-13 15:00)
PROC: 5A1D70Z Performance of Urinary Filtration, Intermittent, Less than 6 Hours Per Day (ICD-10-PCS; 2020-06-14)
PROC: 5A1D70Z Performance of Urinary Filtration, Intermittent, Less than 6 Hours Per Day (ICD-10-PCS; 2020-06-15)
DX: I13.0 Hypertensive heart and chronic kidney disease with heart failure and stage 1 through stage 4 chronic kidney disease, or unspecified chronic kidney disease (principal); N17.0 Acute kidney failure with tubular necrosis; E43 Unspecified severe protein-calorie malnutrition; E87.2 Acidosis; Z20.822 Contact with and (suspected) exposure to COVID-19; E11.21 Type 2 diabetes mellitus with diabetic nephropathy; I50.33 Acute on chronic diastolic (congestive) heart failure; N18.30 Chronic kidney disease, stage 3 unspecified; E11.22 Type 2 diabetes mellitus with diabetic chronic kidney disease; D64.9 Anemia, unspecified; M94.0 Chondrocostal junction syndrome [Tietze]; E88.09 Other disorders of plasma-protein metabolism, not elsewhere classified; E78.5 Hyperlipidemia, unspecified; E87.70 Fluid overload, unspecified; K21.9 Gastro-esophageal reflux disease without esophagitis; N18.9 Chronic kidney disease, unspecified; Z79.899 Other long term (current) drug therapy; Z79.4 Long term (current) use of insulin; Z79.82 Long term (current) use of aspirin; Z63.5 Disruption of family by separation and divorce; Z89.421 Acquired absence of other right toe(s); Z68.27 Body mass index [BMI] 27.0-27.9, adult
CPT/HCPCS: 82962; 83880; 84439; 87046; 87046-59; A4301; G0378; J0360; J0690; J0885-EC; J1644; J1815; J1940; J2001; J2270; J2405; J2704; J2710; J3010; J3490; J7030